=== PATIENT | female | born 1990 | race Caucasian/White ===

== ENCOUNTER 2021-07-07 17:44 | Outpatient (CLI) | payer OTHER, BC ==
--- NOTE | 2021-07-08 12:29 | XRAY Report ---
PROCEDURE: Hand 3 View LT INDICATIONS: CONTUSION OF L RING FINGER TECHNIQUE: 3 views of the hand(s) acquired. COMPARISON: None FINDINGS: BONES: No acute, displaced fracture or dislocation. The carpal bones are normally aligned. SOFT TISSUES: No focal abnormality. IMPRESSION: 1.No acute osseous abnormality. Reviewed by: Arnoldo Garcia MD on 07/08/2021 12:27 PM [facility] Approved by: Arnoldo Garcia MD on 07/08/2021 12:27 PM [facility] Station ID: [id number]
== END 2021-07-07 23:59 | disposition home or self-care (01) ==
LOC: DI.N 17:44
PROVIDERS: ATTEND Physician Assistant
DX: S60.042A Contusion of left ring finger without damage to nail, initial encounter (principal)